=== PATIENT | female | born 1970 | race Two or more races ===

== ENCOUNTER → 2021-10-29 | Outpatient (CLI) | payer BC, SELFPAY ==
[2021-11-02 20:07] LABS: Chlamydia By Nucleic Acid AMP Negative (Negative)
[2021-11-02 21:29] LABS: Gonococcus By Nucleic Acid AMP Negative (Negative)
[2021-11-03 17:41] LABS: HPV APTIMA, High Risk Negative (Negative)
== END | disposition home or self-care (01) ==
LOC: LABSPEC 15:26
PROVIDERS: Visit Provider Obstetrics & Gynecology
DX: Z12.4 Encounter for screening for malignant neoplasm of cervix (principal)
CPT/HCPCS: 87491; 87591; 87624; 88175; G0145